=== PATIENT | female | born 1985 | race Caucasian/White ===

== ENCOUNTER 2018-09-01 15:33 | Emergency (ER) | payer MEDICAID ==
[~2018-09-01] VITALS: Ht 147.3 cm; Wt 73.0 kg
[2018-09-01 16:03] VITALS: BP 142/86
[2018-09-01 16:39] LABS: RAPID INFLUENZA A Negative (Negative); RAPID INFLUENZA B Negative (Negative)
[2018-09-01 17:06] LABS: MICROSCOPIC INDICATED
[2018-09-01 17:07] LABS: CULTURE INDICATED? YES
== END 2018-09-01 17:24 | disposition home or self-care (01) ==
LOC: ED 17:05
DX: J20.8 Acute bronchitis due to other specified organisms (principal); B97.89 Other viral agents as the cause of diseases classified elsewhere; N30.00 Acute cystitis without hematuria; F17.200 Nicotine dependence, unspecified, uncomplicated
CPT/HCPCS: 71046; 81001; 81025; 87077; 87086; 87186; 87400; 99284

== ENCOUNTER 2019-07-30 00:56 | Emergency (ER) | payer SELFPAY ==
[~2019-07-30] VITALS: Ht 147.3 cm; Wt 73.0 kg
--- NOTE | 2019-07-30 01:40 | NUR ---
PT ON MONITOR WITH HR AT 140 AND IV STArted with ivf started.
[2019-07-30] MEDS ORDERED: LORazepam 2 MG/ML, 1ML IVPush ONE (02:00)
[2019-07-30] MEDS ORDERED: LORazepam 1MG TABLET PO ONE (02:00)
[2019-07-30] MEDS ORDERED: LORazepam 2 MG/ML, 1ML ONE (02:18)
--- NOTE | 2019-07-30 02:24 | NUR ---
PT MEDICATED ORDERED AND ANBULATED TO BR AND BACK WITH OUT ASSIST.
[2019-07-30 03:11] VITALS: BP 135/95
== END 2019-07-30 03:15 | disposition home or self-care (01) ==
LOC: ED 03:09
DX: S39.012A Strain of muscle, fascia and tendon of lower back, initial encounter (principal); F14.129 Cocaine abuse with intoxication, unspecified; F15.129 Other stimulant abuse with intoxication, unspecified; F41.9 Anxiety disorder, unspecified; G89.29 Other chronic pain; F17.210 Nicotine dependence, cigarettes, uncomplicated; Z98.890 Other specified postprocedural states; X58.XXXA Exposure to other specified factors, initial encounter; Y93.89 Activity, other specified; Y92.89 Other specified places as the place of occurrence of the external cause; Y99.8 Other external cause status
CPT/HCPCS: 93005; 96374; 99283; J2060